=== PATIENT | female | born 1995 | race Caucasian/White ===

== ENCOUNTER 2021-02-14 19:53 | Emergency (ER) | payer OTHER ==
[~2021-02-14] VITALS: Ht 172.7 cm; Wt 54.0 kg
[2021-02-14] MEDS ORDERED: ZOFRAN8 MG PO (22:33)
== END 2021-02-14 22:48 | disposition home or self-care (01) ==
LOC: ER 19:53
DX: R11.11 Vomiting without nausea (principal)

== ENCOUNTER 2021-06-29 14:41 | Emergency (ER) | payer OTHER ==
[~2021-06-29] VITALS: Ht 172.7 cm; Wt 52.2 kg
[~2021-06-29 14:41] MED LIST: ZOFRAN8 MG PO
== END 2021-06-29 18:48 | disposition home or self-care (01) ==
LOC: ER 14:41
DX: G43.809 Other migraine, not intractable, without status migrainosus (principal); M94.0 Chondrocostal junction syndrome [Tietze]; G44.89 Other headache syndrome; R07.89 Other chest pain

== ENCOUNTER 2021-09-11 22:22 | Emergency (ER) | payer OTHER ==
[~2021-09-11] VITALS: Ht 172.7 cm; Wt 54.4 kg
== END 2021-09-11 23:12 | disposition home or self-care (01) ==
LOC: ER 22:22
DX: S40.012A Contusion of left shoulder, initial encounter (principal); S60.222A Contusion of left hand, initial encounter; V29.9XXA Motorcycle rider (driver) (passenger) injured in unspecified traffic accident, initial encounter; Y93.89 Activity, other specified; Y92.488 Other paved roadways as the place of occurrence of the external cause; Y99.8 Other external cause status

== ENCOUNTER 2022-02-23 12:43 | Emergency (ER) | payer OTHER ==
[~2022-02-23] VITALS: Ht 172.7 cm; Wt 45.4 kg
== END 2022-02-23 21:31 | disposition home or self-care (01) ==
LOC: ER 12:43
DX: K52.9 Noninfective gastroenteritis and colitis, unspecified (principal); E86.0 Dehydration; N39.0 Urinary tract infection, site not specified